=== PATIENT | female | born 1990 | race Caucasian/White ===

== ENCOUNTER 2018-10-21 20:35 | Inpatient (IN) | payer OTHER ==
[~2018-10-21] VITALS: Ht 149.9 cm; Wt 61.7 kg
[2018-10-21] MEDS ORDERED: PRENATAL TABLE1 EAC1 PO (20:52)
[2018-10-21] MEDS ORDERED: CALCIUM500 M2 PO (20:54)
[2018-10-21] MEDS ORDERED: FOLIC ACID20 MG PO (20:54)
== END 2018-10-24 13:12 | disposition home or self-care (01) | DRG 807 ==
LOC: OB/GYN 20:35 → LDR 20:35 → OB/GYN 10-22 00:12 → RECOVERY 10-29 16:04
PROVIDERS: ADMIT Obstetrics & Gynecology
PROC: 10E0XZZ Delivery of Products of Conception, External Approach (ICD-10-PCS; principal; 2018-10-21)
PROC: 0UQGXZZ Repair Vagina, External Approach (ICD-10-PCS; 2018-10-21)
PROC: 4A1HXCZ Monitoring of Products of Conception, Cardiac Rate, External Approach (ICD-10-PCS; 2018-10-21)
DX: O71.4 Obstetric high vaginal laceration alone (principal); Z37.0 Single live birth; Z3A.38 38 weeks gestation of pregnancy; Z22.330 Carrier of Group B streptococcus